=== PATIENT | female | born 1970 | race Caucasian/White ===

== ENCOUNTER 2017-02-03 14:01 | Emergency (ER) | payer MEDICAID ==
[~2017-02-03] VITALS: Ht 167.6 cm; Wt 81.2 kg
[~2017-02-03 14:01] MED LIST: ATEN-60
[2017-02-03 14:19] VITALS: BP 122/79
== END 2017-02-03 16:04 | disposition home or self-care (01) ==
LOC: ER 14:01
DX: G89.4 Chronic pain syndrome (principal); M79.605 Pain in left leg; I10 Essential (primary) hypertension; F17.210 Nicotine dependence, cigarettes, uncomplicated; Z95.0 Presence of cardiac pacemaker; Z87.828 Personal history of other (healed) physical injury and trauma; Z76.0 Encounter for issue of repeat prescription

== ENCOUNTER 2019-04-27 01:50 | Emergency (ER) | payer MEDICAID | END 2019-04-27 03:07 | disposition left against medical advice (07) | LOC: ER 01:55 | DX: F99 Mental disorder, not otherwise specified (principal); Z53.21 Procedure and treatment not carried out due to patient leaving prior to being seen by health care provider ==

== ENCOUNTER 2022-07-16 20:58 | Inpatient (IN) | payer MEDICAID ==
[~2022-07-16] VITALS: Ht 167.6 cm; Wt 80.0 kg
[2022-07-16 20:58] VITALS: BP 141/66
[2022-07-16 23:47] LABS: Basophils # (auto) 0.1 10 ^3/uL (0-0.2); Basophils % (auto) 0.9 % (0.0-2.0); Eosinophils # (auto) 0.2 10 ^3/uL (0-0.8); Eosinophils % (auto) 2.2 % (0.0-7.0); Hematocrit 43.8 % (36.0-46.0); Hemoglobin 14.8 g/dL (12.2-16.2); Lymphocytes # (auto) 1.8 10 ^3/uL (0.4-5.4); Lymphocytes % (auto) 25.7 % (10.0-50.0); Mean Corpuscular Hemoglobin 30.4 pg (28.0-32.0); Mean Corpuscular Hgb Conc. 33.8 g/dL (32.0-36.0); Mean Corpuscular Volume 90.2 fL (80.0-100.0); Monocytes # (auto) 0.5 10 ^3/uL (0-1.3); Monocytes % (auto) 7.5 % (0.0-12.0); Neutrophils # (auto) 4.6 10 ^3/uL (1.6-8.6); Neutrophils % (auto) 63.7 % (37.0-80.0); Nucleated Red Blood Cells % 0.1 %; Red Blood Cells 4.86 10^6/uL (4.0-5.20); Red Cell Distribution Width 13.7 % (11.8-14.3); White Blood Cell 7.2 10^3/uL (4.4-10.8)
[2022-07-17 00:13] LABS: Potassium 4.3 mmol/L (3.5-5.1)
[2022-07-17 00:15] LABS: BUN/Creatinine Ratio 28.8
[2022-07-17 00:19] LABS: Bilirubin, Total 0.5 mg/dL (0.2-1.0); Total Protein 7.2 g/dL (6.4-8.2)
[2022-07-17] MEDS ORDERED: HYDROcodone-ACET 5/325MG TAB PO PRN (03:30)
[2022-07-17] MEDS ORDERED: SODIUM CHLORIDE 0.9% 1,000 ML IV SCH (03:30)
[2022-07-17] MEDS ORDERED: ACETAMINOPHEN 325 MG TAB PO PRN (03:30)
[2022-07-17] MEDS ORDERED: DOCUSATE SOD 100 MG CAP PO PRN (03:30)
[2022-07-17] MEDS ORDERED: ONDANSETRON HCL 4 MG/2 ML VIAL IV PRN (03:30)
[2022-07-17] MEDS ORDERED: TEMAZEPAM 15 MG CAP PO PRN (03:30)
[2022-07-17] MEDS ORDERED: NITROGLYCERIN 0.4 MG SL TAB SL PRN (04:00)
[2022-07-17] MEDS ORDERED: MORPHINE SULFATE INJ 2 MG/ml SYRG IV PRN (04:00)
[2022-07-17 05:26] LABS: Basophils # (auto) 0.1 10 ^3/uL (0-0.2); Basophils % (auto) 0.8 % (0.0-2.0); Eosinophils # (auto) 0.1 10 ^3/uL (0-0.8); Eosinophils % (auto) 2.1 % (0.0-7.0); Hemoglobin 14.4 g/dL (12.2-16.2); Lymphocytes # (auto) 1.7 10 ^3/uL (0.4-5.4); Lymphocytes % (auto) 25.8 % (10.0-50.0); Mean Corpuscular Hemoglobin 30.8 pg (28.0-32.0); Mean Corpuscular Hgb Conc. 34.4 g/dL (32.0-36.0); Mean Corpuscular Volume 89.6 fL (80.0-100.0); Monocytes # (auto) 0.5 10 ^3/uL (0-1.3); Monocytes % (auto) 8.5 % (0.0-12.0); Neutrophils # (auto) 4.1 10 ^3/uL (1.6-8.6); Neutrophils % (auto) 62.8 % (37.0-80.0); Red Blood Cells 4.69 10^6/uL (4.0-5.20); Red Cell Distribution Width 13.6 % (11.8-14.3); White Blood Cell 6.5 10^3/uL (4.4-10.8)
[2022-07-17 05:47] LABS: Calcium 9.2 mg/dL (8.5-10.1)
[2022-07-17 05:57] LABS: BUN/Creatinine Ratio 33.3; Bilirubin, Total 0.5 mg/dL (0.2-1.0); Total Protein 7.1 g/dL (6.4-8.2)
[2022-07-17] MEDS ORDERED: ASPirin 81 mg TAB PO SCH (10:00)
[2022-07-17] MEDS ORDERED: ATORVASTATIN 20 MG TAB PO SCH (22:00)
== END 2022-07-17 23:50 | disposition left against medical advice (07) | DRG 206 ==
LOC: ER 20:58 → EDBD 20:58 → TELE 07-17 04:00
PROVIDERS: ADMIT Nurse Practitioner Family; ATTEND Nurse Practitioner Acute Care
DX: T82.119A Breakdown (mechanical) of unspecified cardiac electronic device, initial encounter (principal); I42.9 Cardiomyopathy, unspecified; Z53.29 Procedure and treatment not carried out because of patient's decision for other reasons; F17.210 Nicotine dependence, cigarettes, uncomplicated; F20.9 Schizophrenia, unspecified; I10 Essential (primary) hypertension; Y71.2 Prosthetic and other implants, materials and accessory cardiovascular devices associated with adverse incidents; Z95.810 Presence of automatic (implantable) cardiac defibrillator; Y92.89 Other specified places as the place of occurrence of the external cause
CPT/HCPCS: 36415; 71045; 80053; 84484; 85025; 93005; G0378

== ENCOUNTER 2023-11-07 15:19 | Inpatient (IN) | payer MEDICAID ==
[~2023-11-07] VITALS: Ht 167.6 cm; Wt 77.0 kg
[2023-11-07 16:09] LABS: Basophils # (auto) 0 10 ^3/uL (0-0.2); Basophils % (auto) 0.8 % (0.0-2.0); Eosinophils # (auto) 0.2 10 ^3/uL (0-0.8); Eosinophils % (auto) 4.4 % (0.0-7.0); Hematocrit 38.5 % (36.0-46.0); Hemoglobin 12.6 g/dL (12.2-16.2); Lymphocytes # (auto) 1.4 10 ^3/uL (0.4-5.4); Lymphocytes % (auto) 26.3 % (10.0-50.0); Mean Corpuscular Hemoglobin 29.7 pg (28.0-32.0); Mean Corpuscular Hgb Conc. 32.8 g/dL (32.0-36.0); Mean Corpuscular Volume 90.6 fL (80.0-100.0); Monocytes # (auto) 0.3 10 ^3/uL (0-1.3); Monocytes % (auto) 6.1 % (0.0-12.0); Neutrophils # (auto) 3.2 10 ^3/uL (1.6-8.6); Neutrophils % (auto) 62.4 % (37.0-80.0); Nucleated Red Blood Cells % 0.1 %; Red Blood Cells 4.25 10^6/uL (4.0-5.20); Red Cell Distribution Width 13.3 % (11.8-14.3); White Blood Cell 5.1 10^3/uL (4.4-10.8)
[2023-11-07 16:29] LABS: Alanine Aminotransferase 13 U/L (7-40); Albumin 4.1 g/dL (3.2-4.8); Alkaline Phosphatase 77 U/L (46-116); Anion Gap 10 (5-15); Aspartate Aminotransferase 21 U/L (13-40); Blood Urea Nitrogen 33 mg/dL (9-23); Calcium 9.3 mg/dL (8.5-10.1); Carbon Dioxide 25 mmol/L (20-30); Chloride 108 mmol/L (98-107); Glucose 160 mg/dL (74-106); Potassium 3.8 mmol/L (3.5-5.1); Sodium 143 mmol/L (136-145)
[2023-11-07 16:30] LABS: Bilirubin, Total 0.2 mg/dL (0.2-1.0); Total Protein 6.1 g/dL (5.7-8.2)
[2023-11-07] MEDS: SODIUM CHLORIDE 0.9% 1,000 ML IV ONE (16:41)
[2023-11-07 16:44] VITALS: PULSE 71; RESP 20; O2SAT 98
[2023-11-07] MEDS ORDERED: NITROGLYCERIN 0.4 MG SL TAB SL PRN (18:15)
[2023-11-07] MEDS ORDERED: DOCUSATE SOD 100 MG CAP PO PRN (18:15)
[2023-11-07] MEDS ORDERED: ACETAMINOPHEN 325 MG TAB PO PRN (18:15)
[2023-11-07] MEDS ORDERED: HYDROcodone-ACET 5/325MG TAB PO PRN (18:15)
[2023-11-07] MEDS ORDERED: MORPHINE SULFATE INJ 2 MG/ml SYRG IV PRN (18:15)
[2023-11-07] MEDS ORDERED: hydrALAZINE HCL 20 MG/ML VL IV PRN (18:15)
[2023-11-07] MEDS ORDERED: ONDANSETRON HCL 4 MG/2 ML VIAL IV PRN (18:15)
[2023-11-07] MEDS: ENOXAPARIN SOD 40 MG/0.4 ML SYRINGE SC SCH (19:23)
[2023-11-08 06:36] LABS: Basophils # (auto) 0 10 ^3/uL (0-0.2); Basophils % (auto) 0.7 % (0.0-2.0); Eosinophils # (auto) 0.2 10 ^3/uL (0-0.8); Hematocrit 33.6 % (36.0-46.0); Hemoglobin 11.2 g/dL (12.2-16.2); Lymphocytes # (auto) 2.2 10 ^3/uL (0.4-5.4); Lymphocytes % (auto) 35.1 % (10.0-50.0); Mean Corpuscular Hemoglobin 30.2 pg (28.0-32.0); Mean Corpuscular Hgb Conc. 33.5 g/dL (32.0-36.0); Mean Corpuscular Volume 90.3 fL (80.0-100.0); Monocytes # (auto) 0.5 10 ^3/uL (0-1.3); Monocytes % (auto) 8.6 % (0.0-12.0); Neutrophils # (auto) 3.3 10 ^3/uL (1.6-8.6); Neutrophils % (auto) 52.6 % (37.0-80.0); Red Blood Cells 3.72 10^6/uL (4.0-5.20); Red Cell Distribution Width 13.2 % (11.8-14.3); White Blood Cell 6.2 10^3/uL (4.4-10.8)
[2023-11-08 06:53] LABS: Alanine Aminotransferase 11 U/L (7-40); Albumin 3.6 g/dL (3.2-4.8); Alkaline Phosphatase 66 U/L (46-116); Anion Gap 7 (5-15); Aspartate Aminotransferase 20 U/L (13-40); BUN/Creatinine Ratio 26.3 (10.0-20.0); Blood Urea Nitrogen 25 mg/dL (9-23); Calcium 8.9 mg/dL (8.5-10.1); Carbon Dioxide 28 mmol/L (20-30); Chloride 106 mmol/L (98-107); Glucose 110 mg/dL (74-106); Potassium 3.9 mmol/L (3.5-5.1); Sodium 141 mmol/L (136-145)
[2023-11-08 06:54] LABS: Bilirubin, Total 0.2 mg/dL (0.2-1.0); Total Protein 5.4 g/dL (5.7-8.2)
[2023-11-08 07:46] VITALS: PULSE 92; RESP 16; O2SAT 96
[2023-11-08 10:35] LABS: Blood Alcohol < 3.0 mg/dL (<10)
[2023-11-08 10:37] LABS: Magnesium 1.8 mg/dL (1.6-2.6)
[2023-11-08 11:08] LABS: INR 1.03 (0.9-1.15); Partial Thromboplastin Time 26.2 SEC (24.5-34.5); Prothrombin Time 10.8 sec (9.3-11.8)
[2023-11-08 11:27] LABS: Magnesium 1.8 mg/dL (1.6-2.6)
[2023-11-08 13:03] LABS: COVID19 ANTIGEN SOFIA FIA NEGATIVE (NEGATIVE); Rapid Influenza A Negative (Negative); Rapid Influenza B Negative (Negative)
[2023-11-08 13:12] LABS: Urine WBC None Seen /hpf (0 - 5)
[2023-11-08 13:45] LABS: Amphetamine Screen, Urine Neg (NEGATIVE)
[2023-11-08 13:46] LABS: Barbiturate Scree,Urine Neg (NEGATIVE); Benzodiazephine Screen, Urine Neg (NEGATIVE); Cannabinoid Screen, Urine Neg (NEGATIVE); Cocaine Screen, Urine Neg (NEGATIVE); Opiate Scree,Urine Neg (NEGATIVE); Phencyclidine Screen, Urine Neg (NEGATIVE)
[2023-11-08 14:09] LABS: Urine Bacteria FEW /hpf (None Seen); Urine Blood Negative /uL (Negative); Urine Clarity Clear (Clear); Urine Color Colorless (Yellow); Urine Protein, UAD Negative (Negative); Urine Specific Gravity 1.017 (1.001-1.035); Urine Urobilinogen Normal (Negative); Urine pH 6.5 (5.0-8.0)
[2023-11-08] MEDS: IOHEXOL 350 MG/ML 100ML IJ ONE ×2 (15:41→16:27)
[2023-11-08 18:05] VITALS: BP 125/64; PULSE 88; RESP 19; RESP 95; TEMP 98.3; O2SAT 95
[2023-11-08 19:47] VITALS: PULSE 85; PULSE 88; RESP 18; O2SAT 96
[2023-11-08 20:00] VITALS: PULSE 82; PULSE 85; RESP 18; O2SAT 98
[2023-11-08] MEDS: ATENOLOL 25 MG TAB PO SCH (21:51)
[2023-11-08 22:00] VITALS: BP 127/72; PULSE 88; RESP 18; TEMP 98.5; O2SAT 96
[2023-11-08] MEDS ORDERED: HYDR-4902 PO (22:57)
[2023-11-08] MEDS ORDERED: METH20TA PO (22:57)
[2023-11-09] VITALS (7 sets, daily range): BP systolic 122–153; BP diastolic 64–84; PULSE 60–84; RESP 18–20; TEMP 98.1–98.8; O2SAT 95–97
[2023-11-09 06:49] LABS: Urine Bacteria NONE SEEN /hpf (None Seen); Urine Blood Negative /uL (Negative); Urine Clarity Clear (Clear); Urine Protein, UAD Negative (Negative); Urine Specific Gravity 1.022 (1.001-1.035); Urine Urobilinogen Normal (Negative); Urine WBC <1 /hpf (0 - 5)
[2023-11-09 06:51] LABS: Chloride 107 mmol/L (98-107); Potassium 4.6 mmol/L (3.5-5.1); Sodium 138 mmol/L (136-145)
[2023-11-09 06:52] LABS: Anion Gap 4 (5-15); Carbon Dioxide 27 mmol/L (20-30)
[2023-11-09 06:53] LABS: Urine Color Straw (Yellow)
[2023-11-09 06:57] LABS: BUN/Creatinine Ratio 29.6 (10.0-20.0); Blood Urea Nitrogen 24 mg/dL (9-23); Glucose 105 mg/dL (74-106)
[2023-11-09 06:58] LABS: Magnesium 2.1 mg/dL (1.6-2.6)
[2023-11-09 06:59] LABS: Basophils # (auto) 0.1 10 ^3/uL (0-0.2); Basophils % (auto) 1.1 % (0.0-2.0); Eosinophils # (auto) 0.2 10 ^3/uL (0-0.8); Eosinophils % (auto) 3.9 % (0.0-7.0); Hematocrit 36.7 % (36.0-46.0); Hemoglobin 12.3 g/dL (12.2-16.2); Lymphocytes % (auto) 36.1 % (10.0-50.0); Mean Corpuscular Hemoglobin 30.1 pg (28.0-32.0); Mean Corpuscular Hgb Conc. 33.4 g/dL (32.0-36.0); Mean Corpuscular Volume 90.2 fL (80.0-100.0); Monocytes # (auto) 0.4 10 ^3/uL (0-1.3); Monocytes % (auto) 8.3 % (0.0-12.0); Neutrophils # (auto) 2.8 10 ^3/uL (1.6-8.6); Neutrophils % (auto) 50.6 % (37.0-80.0); Nucleated Red Blood Cells % 0.1 %; Red Blood Cells 4.07 10^6/uL (4.0-5.20); Red Cell Distribution Width 13.2 % (11.8-14.3); White Blood Cell 5.4 10^3/uL (4.4-10.8)
[2023-11-09 07:01] LABS: Amphetamine Screen, Urine Neg (NEGATIVE); Barbiturate Scree,Urine Neg (NEGATIVE); Benzodiazephine Screen, Urine Neg (NEGATIVE); Cannabinoid Screen, Urine Neg (NEGATIVE); Cocaine Screen, Urine Neg (NEGATIVE); Opiate Scree,Urine Neg (NEGATIVE); Phencyclidine Screen, Urine Neg (NEGATIVE)
[2023-11-09] MEDS: CYANOCOBALAMIN 500 MCG TAB PO SCH (09:29)
[2023-11-09] MEDS: LISINOPRIL 5 MG TAB PO SCH (09:30)
[2023-11-09] MEDS ORDERED: CYANOCOBALAMIN (B-12) 1000 MCG/1 ML VIAL IM SCH (10:00)
[2023-11-09] MEDS ORDERED: CYANOCOBALAMIN 500 MCG TAB PO SCH (10:00)
[2023-11-09] MEDS: NICOTINE 7MG/24HR TOPICAL PATCH TD SCH (18:37)
[2023-11-10] VITALS (7 sets, daily range): BP systolic 117–153; BP diastolic 63–88; PULSE 60–72; RESP 12–22; TEMP 98–98.3; O2SAT 94–98
[2023-11-10 06:16] LABS: Basophils # (auto) 0 10 ^3/uL (0-0.2); Basophils % (auto) 0.7 % (0.0-2.0); Eosinophils # (auto) 0.3 10 ^3/uL (0-0.8); Eosinophils % (auto) 3.7 % (0.0-7.0); Hemoglobin 12.8 g/dL (12.2-16.2); Lymphocytes % (auto) 27.8 % (10.0-50.0); Mean Corpuscular Hemoglobin 29.9 pg (28.0-32.0); Mean Corpuscular Hgb Conc. 32.8 g/dL (32.0-36.0); Monocytes # (auto) 0.7 10 ^3/uL (0-1.3); Monocytes % (auto) 10.2 % (0.0-12.0); Neutrophils # (auto) 4.1 10 ^3/uL (1.6-8.6); Neutrophils % (auto) 57.6 % (37.0-80.0); Nucleated Red Blood Cells % 0.1 %; Red Blood Cells 4.29 10^6/uL (4.0-5.20); Red Cell Distribution Width 13.6 % (11.8-14.3); White Blood Cell 7.1 10^3/uL (4.4-10.8)
[2023-11-10 06:20] LABS: Chloride 107 mmol/L (98-107); Potassium 4.6 mmol/L (3.5-5.1); Sodium 141 mmol/L (136-145)
[2023-11-10 06:21] LABS: Anion Gap 6 (5-15); Carbon Dioxide 28 mmol/L (20-30)
[2023-11-10 06:22] LABS: Calcium 9.1 mg/dL (8.7-10.4)
[2023-11-10 06:27] LABS: BUN/Creatinine Ratio 28.9 (10.0-20.0); Blood Urea Nitrogen 26 mg/dL (9-23); Glucose 112 mg/dL (74-106); Magnesium 2.2 mg/dL (1.6-2.6)
[2023-11-10] MEDS ORDERED: fentaNYL CITRATE 100 MCG/2 ML VL ONE (08:34)
[2023-11-10] MEDS ORDERED: VANCOMYCIN HCL 1000 MG VL ONE (08:34)
[2023-11-10] MEDS ORDERED: VANCOMYCIN 1GM/200ML 200 ML IV ONE (08:35)
[2023-11-10] MEDS ORDERED: MIDAZOLAM HCL 2MG/2ML 2ml VIAL (1mg/ml) ONE (08:35)
[2023-11-10] MEDS ORDERED: LIDOCAINE 2%HCL (LOCAL ANESTH.) INJ 20ML MDV ONE ×3 (09:05→09:21)
[2023-11-10] MEDS ORDERED: IOHEXOL 350 MG/ML 100ML IJ ONE (09:11)
[2023-11-10] MEDS: FOLIC ACID 1 MG in D5W 5% 50 ML INJ SCH (10:00)
[2023-11-10] MEDS: THIAMINE 100mg/ml INJ (200mg/2ml VIAL) IV SCH (10:00)
[2023-11-10] MEDS: ACETAMINOPHEN 325 MG TAB PO PRN (13:01)
[2023-11-10] MEDS ORDERED: VANCOMYCIN 1GM/200ML 200 ML IV SCH (22:00)
== END 2023-11-10 17:00 | disposition left against medical advice (07) | DRG 176 ==
LOC: EDBD 15:19 → EDUNIT# 15:19 → ER 15:19 → TELE 18:09 → TELE-WESTW 11-08 18:01
PROVIDERS: ADMIT Internal Medicine Geriatric Medicine; ATTEND Internal Medicine Geriatric Medicine
PROC: 0JH608Z Insertion of Defibrillator Generator into Chest Subcutaneous Tissue and Fascia, Open Approach (ICD-10-PCS; principal; 2023-11-10)
PROC: 0JPT0PZ Removal of Cardiac Rhythm Related Device from Trunk Subcutaneous Tissue and Fascia, Open Approach (ICD-10-PCS; 2023-11-10)
DX: I45.81 Long QT syndrome (principal); N17.0 Acute kidney failure with tubular necrosis; G93.41 Metabolic encephalopathy; E53.8 Deficiency of other specified B group vitamins; E86.0 Dehydration; I10 Essential (primary) hypertension; F17.200 Nicotine dependence, unspecified, uncomplicated; J98.11 Atelectasis; F98.8 Other specified behavioral and emotional disorders with onset usually occurring in childhood and adolescence; R91.1 Solitary pulmonary nodule; Z59.00 Homelessness unspecified; Z91.199 Patient's noncompliance with other medical treatment and regimen due to unspecified reason; Z82.49 Family history of ischemic heart disease and other diseases of the circulatory system
CPT/HCPCS: 33264; 36415; 70450; 71045; 71275; 73610; 80048; 80053; 80061; 80307; 80320; 81001; 82140; 82306; 82607; 83036; 83605; 83735; 83880; 84443; 84484; 85025; 85610; 85730; 87081; 87426; 87804; 93005; 93306; 93886; 93970; 95819; 96372; 99152; G0378; J2250; J7060

== ENCOUNTER 2024-05-16 05:42 | Emergency (ER) | payer MEDICAID ==
[~2024-05-16] VITALS: Ht 167.6 cm; Wt 71.2 kg
[~2024-05-16 05:42] MED LIST changes: +HYDR-4902 PO; +METH20TA PO
[2024-05-16 05:55] VITALS: BP 131/78; PULSE 101; RESP 18; O2SAT 99
== END 2024-05-16 08:07 | disposition left against medical advice (07) ==
LOC: ER 05:42
DX: F15.10 Other stimulant abuse, uncomplicated (principal); I10 Essential (primary) hypertension; Z48.01 Encounter for change or removal of surgical wound dressing; Z53.21 Procedure and treatment not carried out due to patient leaving prior to being seen by health care provider

== ENCOUNTER 2024-07-15 20:05 | Emergency (ER) | payer MEDICAID ==
[~2024-07-15] VITALS: Ht 167.6 cm; Wt 71.3 kg
[2024-07-15 20:07] VITALS: BP 137/88; PULSE 112; RESP 16; O2SAT 98
== END 2024-07-16 01:00 | disposition left against medical advice (07) ==
LOC: ER 20:05
DX: F19.10 Other psychoactive substance abuse, uncomplicated (principal); I10 Essential (primary) hypertension; F20.9 Schizophrenia, unspecified; F41.9 Anxiety disorder, unspecified; Z48.01 Encounter for change or removal of surgical wound dressing; Z59.00 Homelessness unspecified; Z79.899 Other long term (current) drug therapy